=== PATIENT | male | born 1940 | race Caucasian/White ===

== ENCOUNTER 2016-08-16 05:45 | Day surgery (SDC) | payer MEDICARE, OTHER ==
[2016-08-16] VITALS (9 sets, daily range): BP systolic 136–156; BP diastolic 76–92; PULSE 63–73; RESP 12–18; O2SAT 95–100
[~2016-08-16] VITALS: Ht 177.8 cm; Wt 93.9 kg
[~2016-08-16 05:45] MED LIST: NAPR220C11 PO
[2016-08-16] MEDS ORDERED: Succinylcholine Chloride 20 mg/mL 5 mL Inj ONE (05:46)
[2016-08-16] MEDS ORDERED: EPHEDrine/NS 5 mg/mL 5 mL Syringe ONE (05:46)
[2016-08-16] MEDS ORDERED: fentaNYL-PF 50 mCg/mL 2 mL Inj ONE (05:46)
[2016-08-16] MEDS ORDERED: Propofol 10,000 mCg/mL 20 mL Inj ONE (05:46)
[2016-08-16] MEDS ORDERED: Ondansetron 2 mg/mL 2 mL Inj ONE (05:46)
[2016-08-16] MEDS ORDERED: Lidocaine PF 1% 30 mL Inj ONE (05:46)
[2016-08-16] MEDS: Lactated Ringer's 1,000 ML IV SCH ×2 (05:53→08:17)
[2016-08-16] MEDS ORDERED: CeFAZolin 2 Gm/50 mL D5W IV Premix IV ONE (06:00)
[2016-08-16] MEDS ORDERED: Vancomycin Inj 1,000 MG in IV Premix 1 EACH IV ONE (06:00)
[2016-08-16] MEDS ORDERED: RED600CA2 PO (06:03)
[2016-08-16] MEDS ORDERED: vit d PO (06:03)
[2016-08-16] MEDS ORDERED: vit e PO (06:03)
[2016-08-16] MEDS ORDERED: vit c PO (06:03)
[2016-08-16] MEDS ORDERED: OMEG500C PO (06:03)
[2016-08-16] MEDS ORDERED: CeFAZolin Inj 2 gm / 50mL D5W IV ONE (06:05)
--- NOTE | 2016-08-16 07:01 | PCM.HPANE ---
Patient Data Date of Service: Aug 16, 2016 Surgeon Admitting Provider: Attending Provider:Naun Washington DO Primary Care Physician:Bashir Delcid MD Other Provider:Shannon Hernandez Anesthesia Reason for Visit Left Knee Arthritis Ht/WT & BMI Height (Feet): 5 Height (Inches): 10.00 Weight (Kilograms): 93.9 Body Mass Index 29.00 Allergies Coded Allergies: No Known Allergies (Unverified , 08/11/16) Past Anesthesia History Anesthesia History: Denies:: Abnormal Airway, Anesthesia Reactions, Difficult Intubation, Malignant Hyperthermia Diabetes History Hx Diabetes?: No MRSA MRSA: No Medications Home Meds Incl Beta Moises: No Reported Medications [vit d] No Conflict Check Po Daily 08/16/16 [vit e] No Conflict Check Po Daily 08/16/16 [vit c] No Conflict Check Po Daily 08/16/16 Fountain-3 Fatty Acids (Fish Oil)500 Mg Capsule.dr500 Mg PO 08/16/16 Red Yeast Rice 600 Mg [id number] Mg PO 08/16/16 Naproxen Sodium (Aleve)220 Mg [id number] Mg PO BID PRN PRN 08/11/16 Discontinued Reported Medications Aspirin-Expunged Drug, Do Not Renew! 325 Mg [id number] Mg PO DAILY INSTRUCTED TO STOP 03/27/12 History History of ENT Problems?: No HEENT History: Denies:: Abnormal Airway Difficult Intubation Hearing Problem Denture Type: Full- Upper Full- Lower Hx of Heart Problems?: No Cardiovascular History: Denies:: Heart Murmur Hypertension Hx of Respiratory Problem?: No Respiratory History: Denies:: Use of C-PAP Machine Hx Neurologic Problems?: Yes Neurological History: Positive for:: Dizziness (HX OF VERTIGO) Denies:: CVA Hx of GI Problems?: Yes Gastrointestinal History: Denies:: Rectal Bleeding (HX COLON POLYPS) Hx of Problems?: Yes Male Hx: Denies:: Prostate Problems Scrotal Mass Testicular Surgery Skin History: Denies:: History Skin Disorders? Pressure Ulcers Hx Musculoskeletal Problems?: Yes Musculoskeletal History: Positive for:: Degenerative Joint Joint Replacement (S/P LT TSA) Musculoskeletal Trauma (S/P KNEE SCOPE) Osteoarthritis (LT KNEE=CURRENT PROBLEM) Hx of Psycho/Social Problems?: No Hx Surgeries?: Yes (KNEE SCOPE,LT TSA) Hx Any Other Health Problems?: Yes Other History: Denies:: Cancer Endocrine Disease Hospitalization Thyroid Disease History Blood Transfusions: Denies:: Blood Transfusions Hx Diabetes: No Hx Alcohol Use: NoHx Substance Use: NoHave You Smoked inLast 12 mo: No Stop/Bang Treated for Sleep Apnea?: No Do You Have a CPAP Machine?: No S-Snoring: Do You Snore Loudly: No T-Tired: feel tired, fatigued: No O-Obsered: Observed not breath: No P-Blood Pressure: treated: No B- Body Mass Index > 35 kg/m2: No A- Age over 50: Yes N- Neck Large Circumference: Yes G- Gender Male: Yes PARTHA Total Score: 3 PARTHA Risk Assessment: High Risk, =/>3 Yes PARTHA Category 4 OutPt Procedure: Yes Risk Assessment Category Category 1A: Patient has history of documented sleep apnea, and HAS NOT received any narcotic, sedative or anesthesia administration during this stay. Category 1B: Patient has history of documented sleep apnea, and HAS received any narcotic , sedative or anesthesia administration during this stay Category 2: Patient has SUSPECTED Obstructive Sleep Apnea, and HAS received any narcotic , sedative or anesthesia administration during this stay. Category 3: Patient has SUSPECTED Obstructive Sleep Apnea and HAS NOT received narcotic, sedative or anesthesia administration during this stay. Category 4: Outpatient in Procedural Areas with known sleep apnea or who screen positive for High Risk via the STOP/BANG questionnaire. Exam Exam Vital Signs Vital Signs Date Time Temp Pulse Resp B/P Pulse Ox O2 Delivery O2 Flow Rate FiO2 08/16/16 06:20 36.0 64 18 143/92 97 Room Air General Appearance: Alert, Oriented X3, Cooperative HEENT/AIRWAY: MP 3, Neck Movement (OK), Other (Upper and lower dentures) Lungs: Clear to Auscultation, Normal Air Movement Heart: Regular Rate/Rhythm, Normal S1, Normal S2 Meds/Labs/Diagnostics Admission Meds Current Medications Lactated Ringer's 1,000 ml @ 120 mls/hr Q8H20M IV Last administered on 05:53; Start 08/16/16 at 05:00; Stop 08/16/16 at 13:19 Vancomycin/0.9 % Sod Chloride/ Premix (Vancomycin Inj/ IV Premix) 200 ml @ 133.333 mls/hr PREOP ONCE IV Last administered on 3/14/17at 06:25; Start 08/16 at 06:00; Stop 08/16/16 at 07:29 Labs Hct 37, labs otherwise wnl Plan Impression Patient chart reviewed, patient interviewed and anesthestic plan with risks, benefits, and alternatives discussed, and informed consent obtained. NPO Status: 10pm ASA Physical Status: ASA2 Mod Systemic Disease Anesthetic Plan: GA Bene/Risks/Altern/Consents: Yes HP Complete Prior to Induction: Yes José Clay MD Aug 16, 2016 06:53
[2016-08-16] MEDS ORDERED: Lactated Ringer's 1,000 ML IV SCH (07:03)
[2016-08-16] MEDS ORDERED: Lactated Ringer's 500 ML IV PRN (07:03)
[2016-08-16] MEDS ORDERED: Dexamethasone 4 mg/mL Inj IVPUSH PRN (07:05)
[2016-08-16] MEDS ORDERED: Ondansetron 2 mg/mL 2 mL Inj IVPUSH PRN (07:05)
[2016-08-16] MEDS ORDERED: EPHEDrine Sulfate 50 mg/mL Inj IVPUSH PRN (07:05)
[2016-08-16] MEDS ORDERED: Phenylephrine 10,000 mCg/mL Inj IVPUSH PRN (07:05)
[2016-08-16] MEDS ORDERED: MetoCLOpramide 5 mg/mL 2 mL Inj IVPUSH PRN (07:05)
[2016-08-16] MEDS ORDERED: Atropine 0.4 mg/mL Inj IVPUSH PRN (07:05)
[2016-08-16] MEDS ORDERED: fentaNYL-PF 50 mCg/mL 2 mL Inj IVPUSH PRN (07:05)
[2016-08-16] MEDS ORDERED: HYDROmorphone 1 mg/mL Inj IVPUSH PRN (07:05)
[2016-08-16] MEDS ORDERED: hydrALAZINE 20 mg/mL Inj IVPUSH PRN (07:05)
[2016-08-16] MEDS ORDERED: Labetalol 5 mg/mL 4 mL Inj IV PRN (07:05)
[2016-08-16] MEDS ORDERED: Bupivacaine Liposome 1.3% 20 mL Inj ONE (07:25)
[2016-08-16] MEDS ORDERED: Bupivacaine-MPF 0.5% W/EPI 30 mL Inj INFILTRATE ONE (08:16)
[2016-08-16] MEDS ORDERED: Sodium Chloride LOK Flush 10 mL Syringe IVFLUSH ONE (08:17)
[2016-08-16] MEDS ORDERED: hydrOXYzine Pamoate 25 mg Capsule PO PRN (09:50)
[2016-08-16] MEDS ORDERED: Acetaminophen IV 1,000 MG in IV Premix 1 EACH IV PRN (09:50)
[2016-08-16] MEDS ORDERED: Ketorolac 15 mg/mL Inj IVPUSH ONE (09:50)
[2016-08-16] MEDS ORDERED: HYDROcodone-APAP 5-325 mg Tablet PO PRN (09:50)
--- NOTE | 2016-08-16 10:08 | PCM.ANEP1 ---
Post Anesthesia Phase 1 PACU Phase 1 Assessment Date of Service: Aug 16, 2016 Vital Signs Vital Signs Date Time Temp Pulse Resp B/P Pulse Ox O2 Delivery O2 Flow Rate FiO2 08/16/16 10:00 71 13 143/76 100 Simple Mask 10 08/16/16 09:55 36.5 66 13 153/79 99 Simple Mask 10 08/16/16 06:20 36.0 64 18 143/92 97 Room Air Anesthetic Administered: GA Level of Alertness: Sleepy, easy to arouse POSEY's with Equal Strength: Yes Pain: No Nausea or Vomiting: No Oxygen Delivery: Simple Mask Lungs: Normal Air Movement José Clay MD Aug 16, 2016 10:08
--- NOTE | 2016-08-16 10:18 | PCM.ANEP2 ---
Post Anesthesia Evaluation ASA/CMS Post Anesthesia Date of Service: Aug 16, 2016 VS in Patient's Normal Range?: Yes Resp Stable; Airway Patent?: Yes CV Function & Hydration Stable: Yes Mental Status Recovered?: Yes Pain control Satisfactory?: Yes N/V Control Satisfactory?: Yes José Clay MD Aug 16, 2016 10:18
--- NOTE | 2016-08-16 10:49 | OP ---
[address] [address] OPERATIVE REPORT PATIENT: MARISABEL COTTRELL : 1940 MR#: [id number] ADMIT: 08/16/2016 JOB ID: [id number] DATE OF SURGERY: 08/16/2016 SURGEON: Naun Washington D.O. PREOPERATIVE DIAGNOSIS(ES): Left knee degenerative arthritis. POSTOPERATIVE DIAGNOSIS(ES): Left knee degenerative arthritis. PROCEDURE: 1. Left unicompartmental knee arthroplasty. 2. Diagnostic arthroscopy. ENTERPRISE APPLICATIONS MANAGER: Dipti Stephen PA-C. ANESTHESIA: General. INDICATIONS: The patient is a 76-year-old male with left knee degenerative arthritis who had failed conservative measures and wished to proceed with a knee replacement. We discussed treatment options. I did a stress view which demonstrated medial compartment degenerative arthritis primarily and we discussed partial versus total knee arthroplasty and would like to proceed with a partial knee arthroplasty if possible. We discussed the risks, benefits, and possible complications of surgery including, but not limited to injury to nerves and vessels, infection, bleeding, incomplete relief of symptoms, stiffness, need for additional procedures, deep venous thrombosis. The patient had good understanding. All questions were answered and he wished to proceed. A surgical instrument maker was required for the successful completion of this procedure. PROCEDURE IN DETAIL: The patient was brought to the operating room. He was given a preoperative antibiotic and TXA 1 g was given preop. We also had a surgical time out, confirming the patient identity and limb to be operated on. The left knee was sterilely prepped and draped and we elected to do a small diagnostic arthroscopy just to evaluate the lateral compartment. Incision was made over the lateral joint line and the scope was introduced into the knee. Inspection was undertaken. He was found to have no significant degenerative arthritis or meniscal pathology in the lateral compartment and, therefore, we elected to proceed with a partial knee replacement. An incision was made over the medial knee from about the mid point of the patella distally. Dissection was carefully carried through the subcutaneous tissue. A split was made in the medial retinaculum and taken down onto the proximal medial tibial face. A small portion of the meniscus as well as the fat pad was resected in order to gain exposure and some of the osteophytes removed as well. A small wafer of bone was removed from the patella in order to facilitate exposure. The anterior boss of bone off of the tibia was then resected and then the extramedullary tibial femoral cutting guide was placed parallel to the long axis of the tibia. This was pinned into position and the distal femoral cut was performed. The knee was then flexed, and I felt it was somewhat inadequate, so I took some slight additional tibia, pinned the block in position, and performed the tibial cut. Both cut surfaces were then removed and the femur was sized, felt to be a size E. The drill holes were made in the femur and the femoral chamfer cuts were made. The knee was then trialed with a size 5 tibia and E femur which seemed to fit quite nicely. The pegs were drilled for the tibia and the meniscus was removed. This fit quite nicely, allowing full flexion and full extension, with excellent correction of his varus deformity and no excessive tightening with the 11 mm poly. The bony surfaces were washed and dried, and then the components were cemented into position beginning with the [place] 5 medial tibia followed by the E femur and a trial poly. All excess cement was removed and that knee was held in extension while the cement was allowed to polymerize. The knee was then irrigated and the tourniquet was let down. Electrocautery was used for hemostasis. The size 11 thickness poly was then implanted and the knee had excellent tracking and electrocautery was again used for hemostasis. The knee was injected with a mixture of Exparel, Marcaine and saline and the wound was then closed with interrupted #1 Surgilon to close the medial retinaculum. The distal portion was closed with 0-Vicryl. The subcu was closed with 2-0 Vicryl and skin was closed with a running subcuticular 3-0 V lock suture. Some additional local was added as well. Sterile dressings were applied. The patient tolerated the procedure well. BLOOD LOSS: Was 25 cc. POSTOPERATIVE PROTOCOL: Have the patient weightbear to tolerance. Use walker for ambulation. Ice and elevate and followup in the clinic in two weeks. She was given a prescription for [place] 5/325 for pain and I would like to use Lovenox 40 mg subcu daily for two weeks postop for pain.
--- NOTE | 2016-08-16 10:59 | DRSVH ---
PROCEDURE: X-RAY LEFT KNEE, ONE OR TWO VIEWS ([id number]) INDICATIONS: post uni knee TECHNIQUE: 2 view(s) of the knee acquired. COMPARISON: [facility], , XR KNEE 1 OR 2VW LT, 08/08/2016, 10:31. FINDINGS: Bones: Patient is status post left knee joint and hemiarthroplasty. Hardware components are in expe cted positions. Visualized bony structures are intact. Soft tissues: Overlying postoperative changes are noted. IMPRESSION: Left knee hemiarthroplasty as above. Dictated by: Rain Ballard M.D. on 08/16/2016 at 10:57 Approved by: Rain Ballard M.D. on 08/16/2016 at 10:58
[2016-08-16] MEDS ORDERED: CeFAZolin Inj 2 GM in IV Premix 1 EACH IV SCH (16:30)
== END 2016-08-16 23:59 | disposition home or self-care (01) ==
LOC: SAS 05:45 → MERGE 09:45 → SAS 23:59
PROVIDERS: ATTEND Orthopaedic Surgery
DX: M17.12 Unilateral primary osteoarthritis, left knee (principal); R42 Dizziness and giddiness
CPT/HCPCS: 27446; 73560; 97161; C1713; C1776; J0330; J0690; J1885; J2250; J2405; J3010; J3370; J7120; Q0177